=== PATIENT | male | born 1985 | race Caucasian/White ===

== ENCOUNTER 2021-02-27 15:52 | Emergency (ER) | payer OTHER ==
--- NOTE | 2021-02-27 17:28 | EDM.PDOC ---
ED HPI GENERAL MEDICAL PROBLEM - General Chief Complaint: Chest Pain Stated Complaint: CHEST PAIN Time Seen by Provider: 02/27/21 16:03 Source of Information: Reports: Patient History Limitations: Reports: No Limitations - History of Present Illness INITIAL COMMENTS - FREE TEXT/NARRATIVE: 35-year-old male presents the emergency department today with complaints of chest discomfort that started last week. Patient states that discomfort is intermittent. He notices it at times after eating meals however he states that today he went swimming and for a walk which exacerbated the pain. He states pain is not as intense this week as it was initially last week. He states that it is worse while exhaling after taking a deep breath. Denies any past medical history. Does not take any prescription medications. Does not smoke. Has not had any recent fever, chills, nausea, vomiting or diarrhea. - Related Data Allergies Allergy/AdvReac Type Severity Reaction Status Date / Time Penicillins Allergy Rash Verified 02/27/21 16:21 Home Meds: Home Meds . [No Known Home Meds] 02/27/21 [History] Past Medical History HEENT History: Reports: Impaired Vision Cardiovascular History: Reports: High Cholesterol - Past Surgical History HEENT Surgical History: Reports: Adenoidectomy, Myringotomy w Tube(s) Social & Family History - Tobacco Use Tobacco Use Status *Q: Never Tobacco User Second Hand Smoke Exposure: No - Caffeine Use Caffeine Use: Reports: Coffee - Alcohol Use Days Per Week of Alcohol Use: 7 Number of Drinks Per Day: 1 Total Drinks Per Week: 7 - Recreational Drug Use Recreational Drug Use: No ED ROS GENERAL - Review of Systems Review Of Systems: Comprehensive ROS is negative, except as noted in HPI. ED EXAM, GENERAL - Physical Exam Exam: See Below Exam Limited By: No Limitations General Appearance: Alert, WD/WN, No Apparent Distress Ears: Normal External Exam, Hearing Grossly Normal Nose: Normal Inspection Throat/Mouth: Normal Inspection, Normal Lips, Normal Voice, No Airway Compromise Head: Atraumatic, Normocephalic Neck: Normal Inspection, Supple Respiratory/Chest: No Respiratory Distress, Lungs Clear, Normal Breath Sounds, No Accessory Muscle Use, Chest Non-Tender Cardiovascular: Normal Peripheral Pulses, Regular Rate, Rhythm, No Edema, No Murmur Peripheral Pulses: 2+: Radial (L), Radial (R) GI/Abdominal: Normal Bowel Sounds, Soft, Non-Tender, No Distention (Male) Exam: Deferred Rectal (Males) Exam: Deferred Back Exam: Normal Inspection Extremities: Normal Inspection Neurological: Alert, Oriented, Normal Cognition Psychiatric: Normal Affect, Normal Mood Skin Exam: Warm, Dry, Intact, Normal Color, No Rash Lymphatic: No Adenopathy #1 Interpretation EKG Date: 02/27/21 Time: 16:02 Rhythm: NSR Rate (Beats/Min): 71 [place]: Normal P-Wave: Present QRS: Normal ST-T: Normal QT: Normal Comparison: NA - No Prior EKG EKG Interpretation Comments: Per Dr. Hodges interpretation: Sinus rhythm at 71 bpm. Course - Vital Signs Text/Narrative:: As stated above, patient presents with intermittent chest discomfort starting approximately 1 week ago. Time of exam, patient's blood pressure is slightly elevated however come down to 145/85. Patient is otherwise hemodynamically stable. Physical exam is essentially unremarkable. Chest pain is not reproducible with palpation. Patient denies having chest pain at the time of my exam. Will obtain a full cardiac work-up to include labs, EKG and x-rays. Last Recorded V/S: Last Vital Signs Temp 97.1 F 02/27/21 16:10 Pulse 72 02/27/21 16:10 Resp 12 02/27/21 16:10 BP 177/109 H 02/27/21 16:10 Pulse Ox 99 02/27/21 16:10 - Orders/Labs/Meds Orders: Active Orders 24 hr Category Date Time Status Chest 1V Frontal [CR] Stat Exams 02/27/21 16:35 Taken Labs: Laboratory Tests 02/27/21 02/27/21 02/27/21 Range/Units 16:15 16:15 16:15 WBC 8.02 (4.23-9.07) K/mm3 RBC 5.07 (4.63-6.08) M/mm3 Hgb 15.9 (13.7-17.5) gm/dl Hct 47.7 (40.1-51.0) % MCV 94.1 H (79.0-92.2) fl MCH 31.4 (25.7-32.2) pg MCHC 33.3 (32.2-35.5) g/dl RDW Std Deviation 42.9 (35.1-43.9) fL Plt Count 263 (163-337) K/mm3 MPV 10.1 (9.4-12.3) fl Neut % (Auto) 50.0 (34.0-67.9) % Lymph % (Auto) 37.3 (21.8-53.1) % [place] % (Auto) 10.5 (5.3-12.2) % Eos % (Auto) 1.6 (0.8-7.0) Baso % (Auto) 0.4 (0.1-1.2) % Neut # (Auto) 4.01 (1.78-5.38) K/mm3 Lymph # (Auto) 2.99 (1.32-3.57) K/mm3 [place] # (Auto) 0.84 H (0.30-0.82) K/mm3 Eos # (Auto) 0.13 (0.04-0.54) K/mm3 Baso # (Auto) 0.03 (0.01-0.08) K/mm3 D-Dimer, Quantitative 0.31 (0.19-0.50) mg/L Sodium 142 (136-145) mEq/L Potassium 3.9 (3.5-5.1) mEq/L Chloride 102 (98-107) mEq/L Carbon Dioxide 30 (21-32) mEq/L Anion Gap 13.9 (5-15) BUN 19 H (7-18) mg/dL Creatinine 1.0 (0.7-1.3) mg/dL Est Cr Clr Drug Dosing 109.81 mL/min Estimated GFR (MDRD) > 60 (>60) mL/min BUN/Creatinine Ratio 19.0 H (14-18) Glucose 96 (70-99) mg/dL Calcium 9.4 (8.5-10.1) mg/dL Magnesium 2.0 (1.8-2.4) mg/dL Total Bilirubin 0.3 (0.2-1.0) mg/dL AST 26 (15-37) U/L ALT 50 (16-63) U/L Alkaline Phosphatase 46 (46-116) U/L Troponin I < 0.017 (0.00-0.056) ng/mL C-Reactive Protein <0.2 (<1.0) mg/dL Total Protein 8.6 H (6.4-8.2) g/dl Albumin 4.7 (3.4-5.0) g/dl Globulin 3.9 gm/dL Albumin/Globulin Ratio 1.2 (1-2) - Re-Assessments/Exams Free Text/Narrative Re-Assessment/Exam: 02/27/21 17:30 Hematology is unremarkable D-dimer 0.31 Sodium 142, potassium 3.9, anion gap 13.9, BUN 19, creatinine 1.0, GFR greater than 60, glucose 96, magnesium 2.0, troponin less than 0.017, C-reactive protein less than 0.2 Radiologist impression portable view of the chest: Negative chest. 02/27/21 18:01 Patient will be discharged home. He states he has had a routine physical exam schedule with his primary care provider for next week. Departure - Departure Time of Disposition: 17:31 Disposition: Home, Self-Care 01 Condition: Good Clinical Impression: Atypical chest pain Instructions: Nonspecific Chest Pain, Adult, [id number] Referrals: Ana Snider NP [Primary Care Provider] - Forms: ED Department Discharge Additional Instructions: You were seen in the emergency department today with complaints of intermittent chest discomfort that started approximately 1 week ago. Full cardiac work-up was completed to include labs, chest x-ray, and EKG tracing. All of these test were unremarkable. There are no indications that you have any damage to your heart. Recommend that you follow-up with your primary care provider in about 1 week for further evaluation of your chest discomfort. Sepsis Event Note (ED) - Evaluation Sepsis Screening Result: No Definite Risk - Focused Exam Vital Signs: Vital Signs Temp Pulse Resp BP Pulse Ox 02/27/21 16:10 97.1 F 72 12 177/109 H 99 - My Orders Last 24 Hours: My Active Orders 02/27/21 16:35 Chest 1V Frontal [CR] Stat - Assessment/Plan Last 24 Hours: My Active Orders 02/27/21 16:35 Chest 1V Frontal [CR] Stat
--- NOTE | 2021-02-28 10:09 | CR ---
EXAM: XR CHEST 1 VIEW LOCATION: [facility] DATE/TIME: 02/27/2021 4:38 PM INDICATION: Chest pain COMPARISON: None. IMPRESSION: Negative chest. SIGNED BY: Hever Solares MD 02/27/2021 6:18 PM [facility]
== END 2021-02-27 18:19 | disposition home or self-care (01) ==
LOC: JD.ED 15:52
DX: R07.89 Other chest pain (principal); Z88.0 Allergy status to penicillin
CPT/HCPCS: 36415; 71045; 71045-26; 80053; 83735; 84484; 85025; 85379; 86140; 93005; 99285-25